=== PATIENT | female | born 1945 | race African-American/Black ===

== ENCOUNTER 2017-11-17 08:27 | Emergency (ER) | payer OTHER ==
[~2017-11-17] VITALS: Ht 162.6 cm; Wt 74.8 kg
[~2017-11-17 08:27] MED LIST: ADULT ASPIRIN81 MG; CARVEDILOL6.25 MG; COZAAR100 MG; DICLOFENAC SODI50 MG PO; ISOSORBIDE DINI30 MG; LIPITOR40 MG; NABUMETONE500 MG PO; NORVASC5 MG; PERCOCET 5/3251 TAB PO; PLAVIX75 MG
[2017-11-17] MEDS ORDERED: ZETIA10 MG (08:52)
[2017-11-17] MEDS ORDERED: BACLOFEN10 MG (08:54)
[2017-11-17] MEDS ORDERED: SKELAXIN800 MG PO (10:34)
== END 2017-11-17 10:54 | disposition home or self-care (01) ==
LOC: ER 08:27
DX: M54.89 Other dorsalgia (principal)

== ENCOUNTER 2018-08-19 04:04 | Emergency (ER) | payer OTHER ==
[~2018-08-19] VITALS: Ht 162.6 cm; Wt 78.5 kg
[~2018-08-19 04:04] MED LIST changes: +BACLOFEN10 MG; +SKELAXIN800 MG PO; +ZETIA10 MG
== END 2018-08-19 13:56 | disposition home or self-care (01) ==
LOC: ER 04:04 → CPU-OBS 04:33 → ER 04:33
DX: I20.9 Angina pectoris, unspecified (principal); R07.89 Other chest pain

== ENCOUNTER 2018-09-08 06:30 | Emergency (ER) | payer OTHER ==
[~2018-09-08] VITALS: Ht 162.6 cm; Wt 79.4 kg
== END 2018-09-08 11:51 | disposition home or self-care (01) ==
LOC: ER 06:30
DX: B34.9 Viral infection, unspecified (principal)

== ENCOUNTER 2019-12-08 07:09 | Outpatient (CLI) | payer OTHER | END 2019-12-08 07:18 | disposition home or self-care (01) | LOC: NUCLEAR 07:09 | PROVIDERS: ATTEND Internal Medicine Cardiovascular Disease | DX: I25.10 Atherosclerotic heart disease of native coronary artery without angina pectoris (principal); I11.9 Hypertensive heart disease without heart failure | CPT/HCPCS: 78452; 93017; A9500; J0153 ==

== ENCOUNTER 2020-03-13 07:02 | Outpatient (CLI) | payer OTHER | END 2020-03-13 07:09 | disposition home or self-care (01) | LOC: RAD 07:02 | PROVIDERS: ATTEND Orthopaedic Surgery | DX: M17.0 Bilateral primary osteoarthritis of knee (principal); M25.561 Pain in right knee; M25.562 Pain in left knee ==

== ENCOUNTER 2020-07-13 10:39 | Outpatient (CLI) | payer OTHER | END 2020-07-13 10:47 | disposition home or self-care (01) | LOC: RAD 10:39 | PROVIDERS: ATTEND Ophthalmology | DX: I51.7 Cardiomegaly (principal); Z98.41 Cataract extraction status, right eye; H25.011 Cortical age-related cataract, right eye; Z00.00 Encounter for general adult medical examination without abnormal findings ==

== ENCOUNTER 2020-07-18 07:49 | Outpatient (CLI) | payer OTHER | END 2020-07-18 07:55 | disposition home or self-care (01) | LOC: MRI 07:49 | PROVIDERS: ATTEND Obstetrics & Gynecology | DX: D25.0 Submucous leiomyoma of uterus (principal); N84.0 Polyp of corpus uteri | CPT/HCPCS: 72195 ==

== ENCOUNTER 2023-12-17 07:15 | Outpatient (CLI) | payer OTHER | END 2023-12-17 07:25 | disposition home or self-care (01) | LOC: MAMO-SONO 07:15 | PROVIDERS: ATTEND Internal Medicine Hematology & Oncology | DX: N63.0 Unspecified lump in unspecified breast (principal); N64.4 Mastodynia; D51.3 Other dietary vitamin B12 deficiency anemia; D69.6 Thrombocytopenia, unspecified; D32.9 Benign neoplasm of meninges, unspecified; I10 Essential (primary) hypertension; E11.9 Type 2 diabetes mellitus without complications; I87.2 Venous insufficiency (chronic) (peripheral); E78.2 Mixed hyperlipidemia; E66.9 Obesity, unspecified; Z12.31 Encounter for screening mammogram for malignant neoplasm of breast ==

== ENCOUNTER 2024-03-08 12:58 | Inpatient (IN) | payer OTHER ==
[~2024-03-08] VITALS: Ht 165.1 cm; Wt 81.6 kg
[2024-03-08] MEDS ORDERED: 0.9 % SODIUM CHLORIDE 1,000 ML IV ONE (13:45)
[2024-03-08 15:06] LABS: HEMATOCRIT 28.6 % (36.0-45.00); MEAN CELL VOLUME 99.7 fL (80.00-100.00); MEAN CORPUSCULAR HGB CONC 33.9 g/dl (32.0-36.0); RED BLOOD COUNT 2.86 M/uL (4.00-6.00)
[2024-03-08 15:08] LABS: HEMOGLOBIN 9.7 g/dL (12.0-15.00); MEAN CORPUSCULAR HEMOGLOBIN 33.9 pg (27.00-32.0); PLATELET COUNT 83 K/uL (150-450)
[2024-03-08 15:09] LABS: RED CELL DISTRIBUTION WIDTH 17.1 % (11.5-14.5)
[2024-03-08 15:44] LABS: PH,URINE 6.5 (5.0-8.0); URINE APPEARANCE Cloudy; URINE BILIRRUBIN Negative (NEGATIVE); URINE BLOOD Small; URINE COLOR Yellow; URINE KETONE Negative (NEGATIVE); URINE LEUKOCYTE Moderate; URINE NITRATE Negative; URINE PROTEIN 30 (NEGATIVE)
[2024-03-08 15:47] LABS: URINE BACTERIA 8416.1 uL (0.0-1933); URINE EPITHELIAL CELLS 161.9 uL (0.0-38.8); URINE RBC 16.2 uL (0.0-20.8); URINE WBC 223.4 uL (0.0-23.2)
[2024-03-08 16:00] LABS: ALBUMIN 2.1 gm/dL (3.4-5.0); BILIRUBIN TOTAL 0.72 mg/dL (0.3-1.2); CALCIUM 8.2 mg/dL (8.5-10.1); CREATININE SERUM 0.61 mg/dL (0.55-1.02); GFR 94.86; GLOBULINA 3.1 G/DL (2.4-3.5); TOTAL PROTEIN 5.2 gm/dL (6.4-8.2)
[2024-03-08 16:03] LABS: URINE CAST 0.58 uL (0.0-1.40); URINE GLUCOSE >=1000 MG/DL (NEGATIVE)
[2024-03-08] MEDS ORDERED: CEFTRIAXONE SODIUM 2,000 MG VIAL IV ONE (18:00)
[2024-03-08 18:28] LABS: ABG PH 7.454 (7.35-7.45); ABG PO2 95.6 mmHg (80-100); ABG pCO2 33.8 mmHg (35-45)
[2024-03-08 18:29] LABS: BASE EXCESS 0 mmol/l; BICARBONATE 23.2 mmol/l (23-25); Tco2 24.2 mmol/l; allen test SATISFACTORY; o2 28 %; puncture site RADIAL RIGHT
[2024-03-08 18:31] LABS: SaO2 97.7 %
[2024-03-08] MEDS ORDERED: CEFTRIAXONE SODIUM 2,000 MG VIAL ONE (20:58)
[2024-03-08] MEDS ORDERED: IPRATROPIUM BROMIDE 0.5 MG/2.5 ML AMPUL.NEB IH SCH (22:40)
[2024-03-08] MEDS ORDERED: FUROsemide 20 MG/2 ML VIAL IV SCH (22:46)
[2024-03-08] MEDS ORDERED: ACETAMINOPHEN 500 MG GEL..CAP PO PRN (23:00)
[2024-03-09] VITALS (8 sets, daily range): BP systolic 124–146; BP diastolic 72–85; O2SAT 96–100
[2024-03-09 08:05] LABS: INR 1.05; PARTIAL THROMBOPLASTIN TIME 22.2 SECONDS (22.0-34.0); PROTHROMBIN TIME 11.4 SECONDS (9.0-11.5)
[2024-03-09] MEDS ORDERED: FAMOTIDINE/PF 20 MG in 0.9 % SODIUM CHLORIDE 8 ML IV PUSH SCH (09:00)
[2024-03-09] MEDS ORDERED: ATORVASTATIN CALCIUM 40 MG TABLET PO SCH (09:00)
[2024-03-09] MEDS ORDERED: CEFTRIAXONE SODIUM 2,000 MG in 0.9 % SODIUM CHLORIDE 100 ML IV SCH (09:00)
[2024-03-09] MEDS ORDERED: LevETIRAcetam 500 MG TAB. PO SCH (09:00)
[2024-03-09] MEDS ORDERED: ENOXAPARIN SODIUM 40 MG/0.4 ML SYRINGE SUBCUTANEO SCH (09:00)
[2024-03-09] MEDS ORDERED: CARVEDILOL 25 MG TABLET PO SCH (09:00)
[2024-03-09] MEDS ORDERED: TUBERCULIN,PURIF.PROT.DERIV. 10 SKIN.TEST SKIN.TEST ID NR (15:45)
[2024-03-09] MEDS ORDERED: INSULIN LISPRO 1,000 UNIT/10 ML UNITS SUBCUTANEO PRN (16:00)
[2024-03-09] MEDS ORDERED: SILVER SULFADIAZINE 50 GM,ZINC OXIDE 30 GM,NYSTATIN 15 GM TOP SCH (17:00)
[2024-03-09] MEDS ORDERED: DEXAMETHASONE 4 MG TABLET PO SCH (17:00)
[2024-03-09] MEDS ORDERED: METROnidazole 500 MG TABLET PO SCH (17:00)
[2024-03-09] MEDS ORDERED: INSULIN GLARGINE,HUM.REC.ANLOG 1,000 UNITS/10 ML UNITS SUBCUTANEO SCH (21:00)
[2024-03-09] MEDS ORDERED: CARVEDILOL 12.5 MG TABLET PO SCH (21:00)
[2024-03-10] VITALS (9 sets, daily range): BP systolic 102–143; BP diastolic 71–80; O2SAT 94–99
[2024-03-10] MEDS ORDERED: INSULIN LISPRO 1,000 UNIT/10 ML UNITS SUBCUTANEO SCH ×2 (07:00→16:00)
[2024-03-10 07:54] LABS: HEMATOCRIT 26.8 % (36.0-45.00); HEMOGLOBIN 9.4 g/dL (12.0-15.00); MEAN CELL VOLUME 98.6 fL (80.00-100.00); MEAN CORPUSCULAR HEMOGLOBIN 34.4 pg (27.00-32.0); MEAN CORPUSCULAR HGB CONC 34.9 g/dl (32.0-36.0); RED BLOOD COUNT 2.72 M/uL (4.00-6.00)
[2024-03-10 08:07] LABS: PLATELET COUNT 83 K/uL (150-450)
[2024-03-10 08:25] LABS: CALCIUM 8.1 mg/dL (8.5-10.1); CREATININE SERUM 0.58 mg/dL (0.55-1.02); GFR 100.54; POTASSIUM 3.41 mEq/L (3.5-5.1)
[2024-03-10] MEDS ORDERED: CHLORHEXIDINE GLUCONATE 120 ML BOTTLE TOP SCH (09:00)
[2024-03-10] MEDS ORDERED: INSULIN GLARGINE,HUM.REC.ANLOG 1,000 UNITS/10 ML UNITS SUBCUTANEO SCH (21:00)
[2024-03-11] VITALS (9 sets, daily range): BP systolic 115–127; BP diastolic 76–84; O2SAT 96–100
[2024-03-11] MEDS ORDERED: FUROsemide 20 MG/2 ML VIAL IV SCH (09:00)
[2024-03-11 13:26] LABS: FOLIC ACID 18.65 ng/ml (4.78-20)
[2024-03-11 14:32] LABS: CALCIUM 8.4 mg/dL (8.5-10.1); CREATININE SERUM 0.73 mg/dL (0.55-1.02); GFR 77.1; POTASSIUM 3.86 mEq/L (3.5-5.1)
[2024-03-12] VITALS (8 sets, daily range): BP systolic 108–151; BP diastolic 75–85; O2SAT 91–100
[2024-03-12 05:45] LABS: CALCIUM 8.2 mg/dL (8.5-10.1); CREATININE SERUM 0.54 mg/dL (0.55-1.02); GFR 109.18; POTASSIUM 3.4 mEq/L (3.5-5.1)
[2024-03-12 06:17] LABS: MEAN CELL VOLUME 97.8 fL (80.00-100.00); MEAN CORPUSCULAR HEMOGLOBIN 33.9 pg (27.00-32.0); MEAN CORPUSCULAR HGB CONC 34.6 g/dl (32.0-36.0); RED BLOOD COUNT 2.66 M/uL (4.00-6.00); RED CELL DISTRIBUTION WIDTH 16.7 % (11.5-14.5)
[2024-03-12 06:18] LABS: PLATELET COUNT 109 K/uL (150-450)
[2024-03-12] MEDS ORDERED: Dextrose ORAL GEL 37.5GM GEL PO ONE (08:57)
[2024-03-12] MEDS ORDERED: fentaNYL CITRATE 50 MCG/ML AMPUL IV PUSH ONE (20:15)
[2024-03-12] MEDS ORDERED: MIDAZOLAM HCL 2 MG/2 ML VIAL IV PUSH ONE (20:15)
[2024-03-13] VITALS (10 sets, daily range): BP systolic 118–135; BP diastolic 74–85; O2SAT 90–100
[2024-03-14] VITALS (8 sets, daily range): BP systolic 112–119; BP diastolic 74–78; O2SAT 88–100
[2024-03-14 07:55] LABS: HEMATOCRIT 28.4 % (36.0-45.00); HEMOGLOBIN 9.6 g/dL (12.0-15.00); MEAN CELL VOLUME 98.3 fL (80.00-100.00); MEAN CORPUSCULAR HEMOGLOBIN 33.1 pg (27.00-32.0); MEAN CORPUSCULAR HGB CONC 33.6 g/dl (32.0-36.0); RED BLOOD COUNT 2.89 M/uL (4.00-6.00); RED CELL DISTRIBUTION WIDTH 16.3 % (11.5-14.5)
[2024-03-14 08:05] LABS: PLATELET COUNT 113 K/uL (150-450)
[2024-03-14 08:32] LABS: CALCIUM 8.3 mg/dL (8.5-10.1); CREATININE SERUM 0.74 mg/dL (0.55-1.02); GFR 75.9; POTASSIUM 3.61 mEq/L (3.5-5.1)
[2024-03-14] MEDS ORDERED: FUROsemide 20 MG TABLET PO SCH (09:00)
[2024-03-14] MEDS ORDERED: METOPROLOL SUCCINATE 25 MG TAB.SR.24H PO SCH (09:00)
[2024-03-14] MEDS ORDERED: PATIENTS OWN MEDICATION (MEDICAMENTO EN PISO) PO SCH (17:00)
[2024-03-14] MEDS ORDERED: IPRATROPIUM BROMIDE 0.5 MG/2.5 ML AMPUL.NEB IH SCH (17:00)
[2024-03-15 00:37] VITALS: O2SAT 98
[2024-03-16 06:18] LABS: HEMATOCRIT 28.1 % (36.0-45.00); HEMOGLOBIN 9.6 g/dL (12.0-15.00); MEAN CELL VOLUME 97.3 fL (80.00-100.00); MEAN CORPUSCULAR HEMOGLOBIN 33.1 pg (27.00-32.0); RED BLOOD COUNT 2.89 M/uL (4.00-6.00); RED CELL DISTRIBUTION WIDTH 16.3 % (11.5-14.5)
[2024-03-16 06:29] LABS: PLATELET COUNT 96 K/uL (150-450)
[2024-03-16 06:51] LABS: CALCIUM 8.2 mg/dL (8.5-10.1); CREATININE SERUM 0.64 mg/dL (0.55-1.02); GFR 89.74; POTASSIUM 3.69 mEq/L (3.5-5.1)
[2024-03-16 10:07] VITALS: O2SAT 97
[2024-03-16] MEDS ORDERED: DIPHENHYDRAMINE HCL 50 MG/ML VIAL 1ML ONE (10:47)
[2024-03-16 13:43] VITALS: O2SAT 96
[2024-03-16 17:54] VITALS: BP 106/73; O2SAT 97
[2024-03-16] MEDS ORDERED: DEXTROSE 50 % IN WATER 0.5 G/ML DISP.SYRIN IV ONE (20:16)
[2024-03-16 22:21] VITALS: O2SAT 100
[2024-03-17] VITALS (8 sets, daily range): BP systolic 92–113; BP diastolic 68–84; O2SAT 95–100
[2024-03-17] MEDS ORDERED: DEXTROSE 50 % IN WATER 0.5 G/ML DISP.SYRIN IV ONE (05:21)
[2024-03-18] VITALS (10 sets, daily range): BP systolic 107–120; BP diastolic 76–80; O2SAT 90–100
[2024-03-18 06:31] LABS: HEMATOCRIT 27.3 % (36.0-45.00); HEMOGLOBIN 9.6 g/dL (12.0-15.00); MEAN CELL VOLUME 95.8 fL (80.00-100.00); MEAN CORPUSCULAR HEMOGLOBIN 33.8 pg (27.00-32.0); MEAN CORPUSCULAR HGB CONC 35.3 g/dl (32.0-36.0); RED BLOOD COUNT 2.85 M/uL (4.00-6.00); RED CELL DISTRIBUTION WIDTH 16.3 % (11.5-14.5)
[2024-03-18 06:34] LABS: PLATELET COUNT 98 K/uL (150-450)
[2024-03-18 07:08] LABS: CALCIUM 8.1 mg/dL (8.5-10.1); CREATININE SERUM 0.93 mg/dL (0.55-1.02); GFR 58.31; POTASSIUM 3.93 mEq/L (3.5-5.1)
[2024-03-18] MEDS ORDERED: METROnidazole 500 MG TABLET PO SCH (17:00)
[2024-03-18] MEDS ORDERED: CEFTRIAXONE SODIUM 2,000 MG VIAL IV SCH (17:00)
[2024-03-19 00:42] VITALS: BP 108/75; O2SAT 100
[2024-03-19 03:34] VITALS: O2SAT 97
[2024-03-19 09:19] VITALS: BP 96/62; O2SAT 99
[2024-03-19 09:40] VITALS: O2SAT 94
== END 2024-03-19 11:31 | disposition home or self-care (01) | DRG 291 ==
LOC: ER 12:58 → MEDJ 22:51
PROVIDERS: General Practice; ADMIT Student in an Organized Health Care Education/Training Program; ATTEND Student in an Organized Health Care Education/Training Program
PROC: BW21ZZZ Computerized Tomography (CT Scan) of Abdomen and Pelvis (ICD-10-PCS; principal; 2024-03-08)
PROC: BB24Y0Z Computerized Tomography (CT Scan) of Bilateral Lungs using Other Contrast, Unenhanced and Enhanced (ICD-10-PCS; 2024-03-08)
PROC: B246ZZZ Ultrasonography of Right and Left Heart (ICD-10-PCS; 2024-03-08)
PROC: 0W993ZZ Drainage of Right Pleural Cavity, Percutaneous Approach (ICD-10-PCS; 2024-03-12)
PROC: BB24Y0Z Computerized Tomography (CT Scan) of Bilateral Lungs using Other Contrast, Unenhanced and Enhanced (ICD-10-PCS; 2024-03-15)
DX: I11.0 Hypertensive heart disease with heart failure (principal); J85.1 Abscess of lung with pneumonia; N39.0 Urinary tract infection, site not specified; G40.89 Other seizures; J91.8 Pleural effusion in other conditions classified elsewhere; I50.9 Heart failure, unspecified; D69.6 Thrombocytopenia, unspecified; R91.8 Other nonspecific abnormal finding of lung field; I95.89 Other hypotension; D32.9 Benign neoplasm of meninges, unspecified; E11.9 Type 2 diabetes mellitus without complications; Z79.4 Long term (current) use of insulin; Z79.52 Long term (current) use of systemic steroids; E78.49 Other hyperlipidemia

== ENCOUNTER 2024-04-20 08:14 | Outpatient (CLI) | payer OTHER | END 2024-04-20 08:26 | disposition home or self-care (01) | LOC: MRI 08:14 | PROVIDERS: ATTEND Internal Medicine Hematology & Oncology | DX: D51.3 Other dietary vitamin B12 deficiency anemia (principal); D69.6 Thrombocytopenia, unspecified; D32.9 Benign neoplasm of meninges, unspecified; I10 Essential (primary) hypertension; E11.9 Type 2 diabetes mellitus without complications; I87.2 Venous insufficiency (chronic) (peripheral); E78.2 Mixed hyperlipidemia; E66.9 Obesity, unspecified | CPT/HCPCS: 70553 ==

== ENCOUNTER 2024-04-21 07:35 | Outpatient (CLI) | payer OTHER | END 2024-04-21 07:52 | disposition home or self-care (01) | LOC: TOM 07:35 | PROVIDERS: ATTEND Internal Medicine Hematology & Oncology | DX: D51.3 Other dietary vitamin B12 deficiency anemia (principal); D69.6 Thrombocytopenia, unspecified; D32.9 Benign neoplasm of meninges, unspecified; I10 Essential (primary) hypertension; E11.9 Type 2 diabetes mellitus without complications; I87.2 Venous insufficiency (chronic) (peripheral); E78.2 Mixed hyperlipidemia; E66.9 Obesity, unspecified | CPT/HCPCS: 71270; 74178; Q9965 ==

== ENCOUNTER 2024-04-27 11:39 | Emergency (ER) | payer OTHER ==
[~2024-04-27] VITALS: Ht 157.5 cm; Wt 72.6 kg
[2024-04-27] MEDS ORDERED: KEPPRA500 MG (12:27)
[2024-04-27] MEDS ORDERED: ADULT LOW DOSE81 M1 (12:27)
[2024-04-27] MEDS ORDERED: LIPITOR20 MG PO (12:27)
[2024-04-27] MEDS ORDERED: SINGULAIR10 MG PO (12:27)
[2024-04-27] MEDS ORDERED: COREG CR20 MG PO (12:28)
[2024-04-27] MEDS ORDERED: FARXIGA10 MG PO (12:28)
[2024-04-27] MEDS ORDERED: LASIX20 MG (12:28)
[2024-04-27] MEDS ORDERED: GLIMEPIRIDE2 MG (12:29)
[2024-04-27] MEDS ORDERED: ACETAMINOPHEN 500 MG GEL..CAP PO ONE (13:05)
[2024-04-27] MEDS ORDERED: BUTALB/ACETAMINOPHEN/CAFFEINE 1 TAB TABLET PO ONE ×2 (14:15→14:26)
[2024-04-27 15:01] LABS: HEMATOCRIT 30.3 % (36.0-45.00); MEAN CELL VOLUME 97.6 fL (80.00-100.00); MEAN CORPUSCULAR HEMOGLOBIN 32.2 pg (27.00-32.0)
[2024-04-27 15:04] LABS: PLATELET COUNT 80 K/uL (150-450)
[2024-04-27 15:26] LABS: ALBUMIN 2.1 gm/dL (3.4-5.0); BILIRUBIN TOTAL 0.57 mg/dL (0.3-1.2); CALCIUM 8.4 mg/dL (8.5-10.1); CREATININE SERUM 0.5 mg/dL (0.55-1.02); GFR 119.32; GLOBULINA 3.5 G/DL (2.4-3.5); POTASSIUM 3.96 mEq/L (3.5-5.1); TOTAL PROTEIN 5.6 gm/dL (6.4-8.2)
[2024-04-27 18:48] LABS: PH,URINE 5.5 (5.0-8.0); URINE APPEARANCE Turbid; URINE BILIRRUBIN Negative (NEGATIVE); URINE BLOOD Moderate; URINE COLOR Yellow; URINE KETONE Negative (NEGATIVE); URINE LEUKOCYTE Moderate; URINE NITRATE Negative
[2024-04-27 18:52] LABS: URINE EPITHELIAL CELLS 40.5 uL (0.0-38.8); URINE RBC 22.6 uL (0.0-20.8); URINE WBC 960.1 uL (0.0-23.2)
[2024-04-27 19:08] LABS: URINE GLUCOSE >=1000 MG/DL (NEGATIVE); URINE PROTEIN 100 (NEGATIVE)
[2024-04-27 19:09] LABS: URINE BACTERIA > 9821.2 uL (0.0-1933); URINE CAST 0.45 uL (0.0-1.40)
== END 2024-04-27 19:45 | disposition home or self-care (01) ==
LOC: ER 11:39
PROVIDERS: Emergency Medicine
DX: N39.0 Urinary tract infection, site not specified (principal); R91.8 Other nonspecific abnormal finding of lung field; Z20.822 Contact with and (suspected) exposure to COVID-19